=== PATIENT | male | born 1980 | race Caucasian/White ===

== ENCOUNTER 2019-12-18 07:50 | Day surgery (SDC) | payer OTHER ==
[2019-12-17 11:55] LABS: BASOPHILS 0.6 % (0-2); EOSINOPHILS 4.1 % (0-7); HEMATOCRIT 46.7 % (42.0-54.0); HEMOGLOBIN 15.7 g/dL (13.5-17.5); IMMATURE GRANULOCYTES 0.2 % (0-5); MCH 30.9 pg (26.0-34.0); MCHC 33.6 g/dL (31.0-37.0); MCV 91.9 fL (80.0-100.0); MEAN PLATELET VOLUME 10.5 fL (7.4-10.4); MONOCYTES 8.6 % (2-11); NEUTROPHILS 60.5 % (40-80); PLATELET COUNT 205 10x3/uL (130-400); RBC 5.08 10x6/uL (4.20-6.10); RDW 12.2 % (11.5-14.5); WBC 5.4 10x3/uL (4.8-10.8)
[2019-12-17 12:05] LABS: CALC OSMOLALITY 274 mosm/kg (275-300); CALCIUM 8.5 mg/dL (8.5-10.1); CARBON DIOXIDE 29.7 mmol/L (21.0-32.0); CHLORIDE - SERUM 102 mmol/L (98-107); CREATININE - SERUM 0.9 mg/dL (0.6-1.3); GLUCOSE 106 mg/dL (74-106); POTASSIUM - SERUM 3.7 mmol/L (3.5-5.1); SODIUM 138 mmol/L (136-145); UREA NITROGEN 10 mg/dL (7-18); eGFR NON AFRICAN AMERICAN > 90 mL/min (90-120)
[~2019-12-18] VITALS: Ht 180.3 cm; Wt 92.1 kg
[~2019-12-18 07:50] MED LIST: PAXIL20 MG PO
[2019-12-18 08:23] VITALS: BP 137/85; Ht 180.3 cm; Wt 92.1 kg
[2019-12-18] MEDS ORDERED: HYDROCODON-ACE1 EA10 PO (10:02)
--- NOTE | 2019-12-18 13:53 | NUR ---
1250-PAIN HAS SUBSIDED FROM PAIN REGIMEN OF [place] 10/325MG 1 BY MOUTH. ADMINISTERED BY LONA HERNANDEZ AT 1215. REMOVED IV WITH CATH INTACT, DISPOSED INTO SHARPS, COVERED WITH GUAZE, SECURED WITH MEDIPORE TAPE. REVIEWED POST OP INSTRUCTIONS AND FOLLOW UP APPOINTMENT WITH PT AND . VERBAIZED UNDERSTANDING.
--- NOTE | 2019-12-18 13:55 | NUR ---
1255-VSS. VOIDED.NO DISTRESS. PAIN 4/10 TO INCISION SITE. DRESSING CDI. PT DRESSED. ESCORTED OUT VIA W/C BY STAFF WITH SPOUSE AWAITING TO DRIVE HOME.
--- NOTE | 2019-12-20 09:28 | OP ---
PATIENT NAME: KASEY AVALOS MEDICAL RECORD: [id number] :84 LOCATION:D.OPS ADMISSION DATE: SURGEON: JONATHAN JON MD DATE OF OPERATION: 12/18/2019 PREOPERATIVE DIAGNOSIS: Right inguinal hernia. POSTOPERATIVE DIAGNOSIS: Right inguinal hernia. PROCEDURE: Right inguinal hernia repair with medium PHS mesh. SURGEON: Jonathan Jon MD REPORT OF PROCEDURE: The patient's right groin was prepped and draped in sterile fashion. An oblique incision was made above the inguinal ligament. Electrocautery was used to dissect through the subcutaneous tissues to the external oblique fascia. This fascia was opened up to the external ring using electrocautery. The ilioinguinal nerve was found and high ligated. We elevated the spermatic cord. There was noted to be a large fatty indirect hernia defect present. This was freed up from the surrounding tissues. There was noted to be a cord lipoma associated with this and this was high ligated with a 3-0 silk tie. The hernia defect was freed up from the spermatic cord and pushed back down into the abdominal cavity. We then opened up the inguinal floor and opened the preperitoneal space of Retzius. A medium PHS mesh was then inserted and sutured down on all sides using multiple interrupted 0 Vicryls. The wound was irrigated out with normal saline. The external oblique fascia was closed with running 2-0 Vicryl, Roberto's was closed with interrupted 3-0 Vicryl and the skin was closed with running subcutaneous 5-0 Monocryl. COMPLICATIONS: None. CONDITION: Stable. ANESTHESIA: General endotracheal and local. BLOOD LOSS: Minimal. TRANSINT:[id number] Voice Confirmation ID: [id number] DOCUMENT ID: [id number] JONATHAN JON MD at 0928 CC: SHEILA EDWARDS MD [id number] DICTATION DATE: 12/18/19 1014 ENVIRONMENTAL ENGINEERING PROFESSOR: 12/18/199 [facility] 12/18/[address] [id number]
== END 2019-12-18 12:55 | disposition home or self-care (01) ==
LOC: D.OPS 07:50
PROVIDERS: ATTEND Surgery
DX: K40.90 Unilateral inguinal hernia, without obstruction or gangrene, not specified as recurrent (principal)